=== PATIENT | male | born 1975 | race Caucasian/White ===

== ENCOUNTER → 2018-11-01 08:45 | Outpatient (CLI) | payer BC, SELFPAY ==
[2018-11-01 10:40] LABS: ALB/GLOB Ratio 1.1 RATIO (0.9-2.4); AST(SGOT) 16 U/L (15-37); Alanine Aminotransfer ALT/SGPT 21 U/L (16-61); Albumin, Serum 4.1 g/dL (3.2-5.0); Alkaline Phosphatase 80 U/L (45-117); Anion Gap 5 (5-15); BUN 16 mg/dL (7-18); BUN/Creat Ratio 15.7 RATIO (10-20); Calcium,Total 9.6 mg/dL (8.5-10.1); Chloride 107 mmol/L (98-107); Cholesterol 170 mg/dL (200); Creatinine, Serum 1.02 mg/dL (0.70-1.30); EST Glomerular Filtration Rate 85 mL/min (>60); Est Glom Filt Rate - Afr Amer 103 mL/min (>60); Globulin 3.6 g/dL (2.2-4.2); Glucose 99 mg/dL (74-106); High Density Lipoprotein 42 mg/dL; Potassium 4.4 mmol/L (3.5-5.1); Protein, Total 7.7 g/dL (6.4-8.2); Sodium Level 139 mmol/L (136-145); Triglycerides 84 mg/dL; Very Low Density Lipoprotein 17 mg/dL (5-40)
== END ==
PROVIDERS: Family Provider Family Medicine; PCP Family Medicine; Referring Provider Family Medicine; Visit Provider Nurse Practitioner Family
DX: Z00.00 Encounter for general adult medical examination without abnormal findings (principal)
CPT/HCPCS: 36415; 80053; 80061

== ENCOUNTER 2022-01-19 19:17 | Emergency (ER) | payer BC, SELFPAY ==
[2022-01-19 19:18] VITALS: BP 148/85; PULSE 104; RESP 13; TEMP 37; O2SAT 100; BMI 24.6
[2022-01-19 19:21] VITALS: BMI 24.6
[2022-01-19 19:46] LABS: Bedside Glucose 87 mg/dL (74-106)
--- NOTE | 2022-01-19 19:48 | CT_ITS ---
INDICATION: vision changes EXAMINATION: CT BRAIN - CT Head or Brain W/O Contrast Injection TECHNIQUE: Multiple axial images were obtained of the head without intravenous contrast. A radiation dose optimization technique was used for this scan. IV Contrast dosage and agent: None. COMPARISON: None. FINDINGS: BRAIN PARENCHYMA: No intra- or extra-axial hemorrhage. No intracranial mass or mass effect. Coughlin/white matter differentiation is maintained and there is no blurring of the basal ganglia. There is no hyperdense vessel. Posterior fossa structures are unremarkable. CSF SPACES: Appropriate for age. No hydrocephalus. Basal cisterns are patent. CALVARIUM, SKULL BASE, PARANASAL SINUSES AND MASTOID AIR CELLS: Air-fluid levels right and left maxillary sinuses opacifying up to % of the maxillary sinuses. Left frontal sinus is almost completely opacified. Minimal mucosal thickening ethmoid air cells. Sphenoid sinuses are clear. Mastoid air cells and middle ears are clear. Intact calvarium and skull base. ORBITS: Both globes, extraocular muscles, optic nerves and retrobulbar fat appear unremarkable. ASPECTS Score for Acute Strokes: 10 CT/Brain/Head without Contrast IMPRESSION: No intracranial pathology. Paranasal sinus disease as above. Electronically Signed: Shawn Chin DO at 20:23 EST ,
[2022-01-19] MEDS: 0.9% Normal Saline 1,000 ML 1000 ML IV (20:09)
[2022-01-19 20:13] LABS: Absolute Lymphocyte Count 4.26 X10^3/uL (0.83-4.51); Absolute Neutrophil Count 5.7 X10^3/uL (2.0-7.7); Basophil# 0.07 X10^3/uL; Basophil% 0.6 % (0-1); Eosinophil# 0.36 X10^3/uL; Eosinophils% 3.2 % (0-5); Hematocrit 43.1 % (40-54); Hemoglobin 15.2 g/dL (13.0-16.5); Lymphocyte # 4.26 X10^3/ul (0.83-4.51); Lymphocyte % 37.3 % (19-41); Mean Corp Hgb Conc 35.3 g/dL (32-36); Mean Corpuscular Hgb 32.2 pg (27.0-32.0); Mean Corpuscular Volume 91.3 fL (80-94); Mean Platelet Vol. 10.7 fl (6.2-12.0); Monocyte# 0.98 X10^3/uL; Monocyte% 8.6 % (0-10); NRBC Flagged by Analyzer 0 % (0-5); Neutrophil # 5.73 X10^3/uL (2.7-7.7); Neutrophil % 50.1 % (47-70); Platelet Count 211 K/mm3 (150-450); RBC Distribution Width CV 13.2 % (11.6-14.6); RBC Distribution Width SD 44.6 fl (35.1-43.9); Red Blood Count 4.72 M/mm3 (4.6-6.2); White Blood Count 11.4 K/mm3 (4.4-11.0)
[2022-01-19 20:13] LABS: Bacteria 0 SEEN /hpf (None Seen); Mucous, Urine 0 SEEN /hpf (<or=2+); Red Blood Cells-Urine 0 SEEN /hpf (0-5); Squamous Epithelial Cells - UA 0 SEEN /hpf (0-5); White Blood Cells 0 SEEN /hpf (0-5)
[2022-01-19 20:20] LABS: Color, Urine Yellow (Yellow); Glucose, Dipstick Normal (Normal); Ketone-Dipstick Negative (Negative); Leukocyte Esterase-Dipstick Negative /ul (Negative); Nitrite-Dipstick Negative (Negative); Occult Blood-Urine Negative /ul (Negative); Protein-Dipstick Negative (Negative); Urine Bilirubin Dipstick Negative (Negative); Urine Clarity Clear (Clear); Urine Urobilinogen Normal (Normal); Urine pH 6.5 (5.0 - 8.0)
[2022-01-19 20:23] LABS: Partial Thromboplast Time 29.8 Seconds (24.1-36.2)
[2022-01-19 20:31] LABS: ALB/GLOB Ratio 1.1 RATIO (0.9-2.4); AST(SGOT) 25 U/L (15-37); Alanine Aminotransfer ALT/SGPT 31 U/L (16-61); Albumin, Serum 4.3 g/dL (3.2-5.0); Alkaline Phosphatase 90 U/L (45-117); Anion Gap 8 (5-15); BUN 21 mg/dL (7-18); BUN/Creat Ratio 22.4 RATIO (10-20); Calcium,Total 9.3 mg/dL (8.5-10.1); Chloride 102 mmol/L (98-107); Creatinine, Serum 0.94 mg/dL (0.70-1.30); EST Glomerular Filtration Rate 92 mL/min (>60); Est Glom Filt Rate - Afr Amer 112 mL/min (>60); Estimated Creatinine Clearance 110.97 ml/min; Globulin 3.8 g/dL (2.2-4.2); Glucose 94 mg/dL (74-106); Potassium 3.7 mmol/L (3.5-5.1); Protein, Total 8.1 g/dL (6.4-8.2); Sodium Level 138 mmol/L (136-145)
[2022-01-19 20:41] VITALS: BP 152/88; PULSE 113; RESP 26; O2SAT 99
--- NOTE | 2022-01-19 20:42 | EX.ED.DYSGE1 ---
HPI History of Present Illness Chief Complaint: Neuro S/Sx Informant: patient Narrative Narrative: Patient is a 46-year-old male with history of anxiety presenting for concern of an episode of difficulty putting words together as well as transient vision change in his left eye. Patient states that he has been tentatively diagnosed with ocular migraines by his eye doctor 6 months to a year ago. States he gets 1-2 episodes a year. He most recently saw his production engine repairer, Dr. Post, who told him if he had increased frequency of this he might need further evaluation. Patient states when these episodes happen his vision feels fuzzy and pulsatile and sometimes into his left eye and sometimes it is right. He has since had 2 episodes in the last week which is an increased frequency. His is not usually around when he has not sought today and recommend he come to the ER because she has a history of stroke. Patient states that when this happens it was a his left eye that felt fuzzy and he had a hard time completing his sentences/putting his words altogether. No report of any slurred speech. Patient notes he does get the speech changes when he is very anxious as well. He has been having worsening headaches as well as left shoulder and back pain. He used to be on Celexa 40 mg but is been off it for couple of years. Denies any associated numbness or tingling. No other complaints at this time. [facility] Medical History GERD (gastroesophageal reflux disease) Home Medications amoxicillin 875 mg-potassium clavulanate 125 mg tablet 1 tab PO BID #20 tabs 01/19/22 [Rx Last Taken Unknown] cetirizine 10 mg capsule (Zyrtec) 10 mg PO DAILY #14 caps 01/19/22 [Rx Last Taken Unknown] omeprazole 20 mg capsule,delayed release 20 mg PO DAILY 01/19/22 [History Last Taken Unknown] Allergy/AdvReac Type Severity Reaction Status Date / Time No Known Allergies Allergy Verified 01/19/22 19:24 Surgical History History of knee surgery Social History Smoking Status: Current every day smoker tobacco type: cigarettes ROS ROS ED Constitutional Constitutional ED: Denies chills or fever(s) Eyes Eyes: Reports blurry vision; Denies change in vision or diplopia ENT ENT ED: Denies rhinorrhea or sore throat Cardiovascular Cardiovascular: Denies chest pain or palpitations Respiratory/Chest Respiratory/Chest: Denies cough or dyspnea Gastrointestinal Gastrointestinal: Denies abdominal pain Genitourinary Genitourinary ED: Denies dysuria or hematuria Musculoskeletal Musculoskeletal: Reports back pain and neck pain; Denies arthralgias or myalgias Integumentary Denies Abrasions or rash Neurologic Neurologic: Reports headache(s); Denies paresthesias or weakness Psychiatric Psychiatric: Reports anxiety; Denies depression Hematologic/Lymphatic Hematologic/Lymphatic: Denies easy bleeding or easy bruising EXAM Physical Exam Const Vital Signs: 01/19/22 19:18 01/19/22 20:41 01/19/22 21:00 Temperature 98.6 F Temperature Source Temporal Pulse Rate 104 H 113 H 122 H Respiratory Rate 13 26 H 13 Blood Pressure 148/85 H 152/88 H Blood Pressure Mean 106 109 Pulse Ox 100 99 100 Oxygen Delivery Method Room Air Room Air Room Air 01/19/22 22:00 Temperature Temperature Source Pulse Rate 103 H Respiratory Rate 13 Blood Pressure 139/82 H Blood Pressure Mean 101 Pulse Ox 100 Oxygen Delivery Method Room Air Positive well nourished and well developed General Appearance ED: well developed and NAD HEENT Reports moist mucous membranes Eyes PERRL and EOMs intact bilaterally Eyes Narrative: Normal conjunctiva Neck supple and no JVD Chest Wall inspection of chest normal and palpation of chest normal Resp normal respiratory effort and clear to auscultation bilaterally Cardio regular rate, regular rhythm and no murmurs GI normal to inspection, nondistended, normoactive bowel sounds and non-tender Back/Spine Back/Spine Narrative: Mild left trapezius tenderness Cervical Spine: Negative for cervical spine tenderness Thoracic Spine / Upper Back: Negative for thoracic spinal tenderness Lumbar Spine / Lower Back: Negative for lumbar spinal tenderness Extremity normal to inspection General Extremety ED: Negative for edema or tenderness General Extremity: Negative for edema Neuro oriented x3, CN's II-XII intact bilaterally and no sensory deficits noted Neuro Narrative: NIH equals 0, no visual field cut appreciated Sensorium / Orientation: alert Motor Exam: strength 5/5 throughout; Negative for general weakness Psych mental status grossly normal Mood & Affect: anxious Skin no rashes or lesions noted and no wounds MDM MDM MDM Narrative Medical decision making narrative: Patient is evaluated for intermittent episodes of vision change and an episode where he could not get his words altogether. His NIH is currently 0. These symptoms have been ongoing for a year off and on and is previously been told he likely has ocular migraines. This is compounded by having increasing anxiety and he states he gets the speech changes when he is very anxious. Given that he currently has a normal neurologic exam a stroke alert is not called. Work-up including a CT of the brain as well as lab work is obtained. Patient has a mild leukocytosis of 11.[address] of the brain shows paranasal sinus disease but no other acute process. This might explain patient's recent increase in headaches. While in the ER patient is tachycardic but attributes this to his anxiety. CTA is ordered which shows no acute abnormalities. Given his negative work-up with these ongoing symptoms for over a year I feel that he can be discharged home with outpatient follow-up. He will be started on Augmentin as well as Zyrtec for his sinus disease. He is agreeable this plan of care. He will follow-up with his primary care doctor and he is also given referral for neurology. Patient is encouraged to speak with his primary care doctor about his anxiety and whether or not he would like to go back on Celexa. Lab Data Attestation: I reviewed the patient's lab results. Labs: Laboratory Results - last 24 hr 01/19/22 01/19/22 01/19/22 19:20 19:20 19:20 WBC 11.4 H RBC 4.72 Hgb 15.2 Hct 43.1 MCV 91.3 MCH 32.2 H MCHC 35.3 RDW Std Deviation 44.6 H RDW Coeff of Nissa 13.2 Plt Count 211 MPV 10.7 Immature Gran % (Auto) 0.200 Neut % (Auto) 50.1 Lymph % (Auto) 37.3 [place] % (Auto) 8.6 Eos % (Auto) 3.2 Baso % (Auto) 0.6 Absolute Neuts (auto) 5.7 Absolute Lymphs (auto) 4.26 Nucleated RBC % 0 PT 13.0 INR 1.0 APTT 29.8 Sodium 138 Potassium 3.7 Chloride 102 Carbon Dioxide 28.0 Anion Gap 8 BUN 21 H Creatinine 0.94 Estim Creat Clear Calc 110.97 Est GFR (MDRD) Af Amer 112 Est GFR (MDRD) Non-Af 92 BUN/Creatinine Ratio 22.4 H Glucose 94 Calcium 9.3 Total Bilirubin 0.20 AST 25 ALT 31 Alkaline Phosphatase 90 Total Protein 8.1 Albumin 4.3 Globulin 3.8 Albumin/Globulin Ratio 1.1 Urine Color Urine Clarity Urine pH Ur Specific Arthur Urine Protein Urine Glucose (UA) Urine Ketones Urine Occult Blood Urine Nitrite Urine Bilirubin Urine Urobilinogen Ur Leukocyte Esterase Urine RBC Urine WBC Ur Squamous Epith Cells Urine Bacteria Urine Mucus POC Glucose 01/19/22 01/19/22 19:26 20:10 WBC RBC Hgb Hct MCV MCH MCHC RDW Std Deviation RDW Coeff of Nissa Plt Count MPV Immature Gran % (Auto) Neut % (Auto) Lymph % (Auto) [place] % (Auto) Eos % (Auto) Baso % (Auto) Absolute Neuts (auto) Absolute Lymphs (auto) Nucleated RBC % PT INR APTT Sodium Potassium Chloride Carbon Dioxide Anion Gap BUN Creatinine Estim Creat Clear Calc Est GFR (MDRD) Af Amer Est GFR (MDRD) Non-Af BUN/Creatinine Ratio Glucose Calcium Total Bilirubin AST ALT Alkaline Phosphatase Total Protein Albumin Globulin Albumin/Globulin Ratio Urine Color Yellow Urine Clarity Clear Urine pH 6.5 Ur Specific Arthur 1.010 Urine Protein Negative Urine Glucose (UA) Normal Urine Ketones Negative Urine Occult Blood Negative Urine Nitrite Negative Urine Bilirubin Negative Urine Urobilinogen Normal Ur Leukocyte Esterase Negative Urine RBC 0 SEEN Urine WBC 0 SEEN Ur Squamous Epith Cells 0 SEEN Urine Bacteria 0 SEEN Urine Mucus 0 SEEN POC Glucose 87 Radiography Diagnostic Testing: Clinical Impression(s) from Imaging Studies Brain CT 01/19/22 19:48 IMPRESSION: No intracranial pathology. Paranasal sinus disease as above. Electronically Signed: hSawn Chin DO at 20:23 EST , Head/Neck CTA 01/19/22 21:46 IMPRESSION: No large vessel occlusion. Minimal intimal calcifications right left carotid bulbs without luminal narrowing. Paranasal sinus disease. Emphysematous changes as well as lung apices. Electronically Signed: Shawn Chin DO at 22:45 EST , ADDENDUM: 01/19/22 0394 IMPRESSION: No large vessel occlusion. Minimal intimal calcifications right left carotid bulbs without luminal narrowing. Paranasal sinus disease. Emphysematous changes as well as lung apices. N.B. : The above Results were Read Back by Shawn Chin DO to Dr. Omar MD, and understanding confirmed on 01/19/2022 22:47:30 (ET). Electronically Signed: Shawn Chin DO at 22:45 EST , Rhythm Strip Rhythm Strip: Sinus Rhythm Rate: 93 Ectopy: None EKG Initial EKG: Attestation: I personally reviewed and interpreted this EKG as follows: Interpretation: Sinus Rhythm Comments: Normal sinus rhythm rate of 93 bpm Normal axis Normal intervals Normal ST segments Discharge Plan Triage Chief Complaint: Neuro S/Sx ED Provider: Bri Nelson Dx/Rx/DC Orders Clinical Impression: Changes in vision, Anxiety, Sinusitis Instructions: ED Headache Unspecified, ED Sinusitis (Antibiotic Treatment) Prescriptions: New amoxicillin-pot clavulanate 875-125 mg tablet 1 tab PO BID Qty: 20 0RF Zyrtec 10 mg capsule 10 mg PO DAILY Qty: 14 0RF No Action omeprazole 20 mg capsule,delayed release(DR/EC) 20 mg PO DAILY Primary Care Provider: Kem Santos Referrals: Kem Santos MD [Primary Care Provider] - James Flores MD [Non-Staff -Ordering Privileges] - As soon as possible Activity Restrictions/Additional Instructions: Please follow-up with your primary care doctor as well as neurology for further evaluation of the symptoms. At this time I feel you are safe to go home. No signs of stroke at this time. Disposition Disposition: Home, Self Care
[2022-01-19 21:00] VITALS: PULSE 122; RESP 13; O2SAT 100
--- NOTE | 2022-01-19 21:46 | CT_ITS ---
We are attempting to reach an attending provider to discuss findings. An addendum with communication details will be sent when the communication is complete. INDICATION: vision changes EXAMINATION: CT BRAIN WITH CONTRAST TECHNIQUE: Routine carotid CT angiogram protocol was performed without and with IV contrast. In addition, images were obtained of the [place] of [place]. NASCET criteria using the distal ICAs for comparison were used for evaluation of stenoses. 3D reconstructions were reviewed. A radiation dose optimization technique was used for this scan. IV Contrast dosage and agent: 100 mL of [id number]. COMPARISON: Unenhanced helical CT is head and brain from earlier the same evening. FINDINGS: --CTA NECK: AORTIC ARCH AND BRANCHES: Normal anatomy, patent. RIGHT CCA: No occlusion, significant stenosis or dissection. RIGHT ICA: No occlusion, significant stenosis or dissection. Minimal intimal calcifications at the level of the carotid bulb without narrowing. LEFT CCA: No occlusion, significant stenosis or dissection. LEFT ICA: No occlusion, significant stenosis or dissection. Minimal intimal calcifications at the level of the carotid bulb without narrowing. RIGHT VERTEBRAL ARTERY: No occlusion, significant stenosis or dissection. LEFT VERTEBRAL ARTERY: No occlusion, significant stenosis or dissection. NECK SOFT TISSUES: No lymphadenopathy. No soft tissue mass lesion. Note of a 10 mm smooth margined hypodensity periphery of the right thyroid lobe. Mild degenerative disc and endplate changes most notably at C4-5 through C6-7 levels. Centrilobular and paraseptal emphysematous changes seen in the visualized upper lungs. --CTA HEAD: --Anterior circulation: ICAs: No significant stenosis at the intracranial/visualized segments. ACAs: No significant stenosis at the visualized segments. Asymmetrically smaller left A2 segment compared to the right; variant anatomy. ACOM: Present. MCAs: No significant stenosis at the visualized segments. --Posterior circulation: PCOMs: Absent bilaterally. steamboat inspector: No significant stenosis at the visualized segments. BASILAR ARTERY: No significant stenosis. VERTEBRAL ARTERIES: No significant stenosis at the intradural/visualized segments. No evidence of intracranial aneurysm or vascular malformation. Air-fluid levels noted in the maxillary sinuses. CT/STROKE CTA Head AND Neck W/Con IMPRESSION: No large vessel occlusion. Minimal intimal calcifications right left carotid bulbs without luminal narrowing. Paranasal sinus disease. Emphysematous changes as well as lung apices. Electronically Signed: Shawn Chin DO at 22:45 EST ,
[2022-01-19 22:00] VITALS: BP 139/82; PULSE 103; RESP 13; O2SAT 100
[2022-01-19 23:43] VITALS: BP 138/86; PULSE 102; RESP 22; TEMP 37; O2SAT 98
[2022-01-19] MEDS: Amox/Clavulanate 875 MG Tablet PO (23:46)
== END 2022-01-19 23:50 | disposition home or self-care (01) ==
PROVIDERS: Emergency Provider Emergency Medicine; PCP Family Medicine; Visit Provider Emergency Medicine
DX: J32.9 Chronic sinusitis, unspecified (principal); F41.9 Anxiety disorder, unspecified; M25.512 Pain in left shoulder; M54.9 Dorsalgia, unspecified; F17.210 Nicotine dependence, cigarettes, uncomplicated; H53.9 Unspecified visual disturbance; Z86.73 Personal history of transient ischemic attack (TIA), and cerebral infarction without residual deficits; R51.9 Headache, unspecified; K21.9 Gastro-esophageal reflux disease without esophagitis; Z79.899 Other long term (current) drug therapy
CPT/HCPCS: 70450; 70496; 70498; 80053; 81001; 82962; 85025; 85610; 85730; 93005; 96360; 96361; 99284; J7030; Q9967; A4216

== ENCOUNTER 2024-11-28 17:20 | Emergency (ER) | payer BC, SELFPAY ==
[2024-11-28 17:21] VITALS: BP 139/93; PULSE 78; RESP 18; TEMP 36.8; O2SAT 100; BMI 23.8
[2024-11-28] MEDS: Rabies Immune Globulin/PF 300 UNIT/ML, 5 ML VIAL 1500 UNIT IM (19:36)
[2024-11-28 20:13] VITALS: BP 127/80; PULSE 79; RESP 16; TEMP 36.7; O2SAT 100
--- NOTE | 2024-11-29 00:34 | EX.ED.GENINJ ---
HPI History of Present Illness Chief Complaint: Bite Narrative Narrative: Patient is a 48-year-old male presenting to the emergency department after being bit by a squirrel. Patient states that he was trying to kill the squirrel and picked it up by its tail and it turned around and bit him in the right index finger. States he has never had any rabies shots before. Denies any other injuries. Up-to-date on tetanus. [facility] Medical History GERD (gastroesophageal reflux disease) Home Medications ?Medication ?Instructions ?Recorded ?Last Taken ?Type cetirizine 10 mg capsule (Zyrtec) 10 mg PO DAILY #14 caps 01/19/22 Unknown Rx omeprazole 20 mg capsule,delayed 20 mg PO DAILY 01/19/22 Unknown History release sertraline 50 mg tablet (Zoloft) 50 mg PO DAILY 03/09/23 Unknown History Allergy/AdvReac Type Severity Reaction Status Date / Time No Known Allergies Allergy Verified 11/28/24 17:21 Family History Mother Diabetes Surgical History History of knee surgery Social History Smoking Status: Current every day smoker tobacco type: cigarettes substance use type: does not use ROS ROS ED ROS Narrative See HPI EXAM Physical Exam Narrative Exam Narrative: Vital signs: Reviewed General: Alert and orientedx3. No acute distress HEENT: Head is normocephalic and atraumatic, sinuses nontender, pupils equal round and reactive. Nares are patent. Oropharynx and throat exams normal. Neck: Supple without lymphadenopathy nontender Cardiovascular: Regular rate and rhythm, no murmurs. No rubs or gallops. Normal S1 and S2 Respiratory: Clear to auscultation bilaterally. No wheezes, rales, rhonchi Abdominal: Soft and nontender. Normal bowel sounds. No guarding or rebound. Nonsurgical abdomen Extremities: 2 small superficial puncture wounds to the distal right index finger on the dorsal side. There is no gaping wound. The wounds are superficial, there is no subcutaneous involvement. No tenderness. No bruising. Normal range of motion. Normal sensation. Skin: No rash or redness. Neurological: Cranial nerves II through XII are grossly intact. Normal strength and sensation. Normal cerebellar function The rest of the physical exam is unremarkable Const Vital Signs: 11/28/24 17:21 11/28/24 20:13 Temperature 98.2 F 98.0 F Temperature Source Oral Pulse Rate 78 79 Respiratory Rate 18 16 Blood Pressure 139/93 H 127/80 H Blood Pressure Mean 108 95 Pulse Ox 100 100 Oxygen Delivery Method Room Air MDM MDM MDM Narrative Medical decision making narrative: Patient is a 48-year-old male presenting to the emergency department after being bit by a squirrel. Patient was seen and examined. Vitals are stable. Patient resting bed comfortably no acute distress. Tetanus up-to-date. Discussed with the patient that there is a low likelihood that squirrels carry rabies however did offer the rabies vaccine and immunoglobulin. Patient is agreeable. These were given here. Patient was instructed to come back on days 3, 7 and 14 for additional vaccines. The wound was copiously irrigated. Patient was given wound care instructions. The wound is very superficial, I do not think it is necessary to obtain x-ray imaging given I have no concern for any fractures or foreign bodies. Patient discharged from the Emergency Department. I do not feel that the patient's evaluation reveals any acute reason for admission at this time. I instructed them to either follow-up with their primary care physician or promptly return to the Emergency Department for reevaluation should symptoms worsen or new symptoms develop. I explained what symptoms would indicate the need to return to the emergency department. Shared decision making was used. The patient voiced understanding of the treatment plan and is agreeable with it. Clinical impression Animal bite History & Record Review Discussion w/independent historian: Patient Discharge Plan Triage Chief Complaint: Bite ED Provider: Cynthia Macdonald Dx/Rx/DC Orders Clinical Impression: Animal bite Instructions: Understanding Rabies, ED Animal Bite (General) Prescriptions: No Action sertraline [Zoloft] 50 mg tablet 50 mg PO DAILY omeprazole 20 mg capsule,delayed release(DR/EC) 20 mg PO DAILY Zyrtec 10 mg capsule 10 mg PO DAILY Qty: 14 0RF Primary Care Provider: Gaurav Santos Referrals: Gaurav Santos MD [Primary Care Provider, Family Practice] - As soon as possible Activity Restrictions/Additional Instructions: You need to return here in 3 days, 7 days and 14 days for repeat rabies vaccinations. Keep the wound clean and dry. Your evaluation in the Emergency Department did not reveal any acute reason for admission. However, I want to emphasize that you may be early in the course of a disease process or illness even if it is not present. For this reason you should follow-up within 24 hours for reevaluation with either your primary care physician or if necessary back here in the Emergency Department. You should return to the Emergency Department immediately if your symptoms worsen or new symptoms develop. Print Language: Cypriot Disposition Disposition: Home, Self Care Discharge Date/Time: 11/28/24 20:16
== END 2024-11-28 20:16 | disposition home or self-care (01) ==
PROVIDERS: Emergency Provider Student in an Organized Health Care Education/Training Program; PCP Family Medicine; Visit Provider Student in an Organized Health Care Education/Training Program
DX: S61.230A Puncture wound without foreign body of right index finger without damage to nail, initial encounter (principal); W53.21XA Bitten by squirrel, initial encounter; Z23 Encounter for immunization; K21.9 Gastro-esophageal reflux disease without esophagitis; F17.210 Nicotine dependence, cigarettes, uncomplicated
CPT/HCPCS: 90675; 96372; 99282; 90375

== ENCOUNTER 2024-12-01 08:31 | Outpatient (CLI) | payer BC, SELFPAY ==
[2024-12-01 08:31] VITALS: BP 122/84; PULSE 76; RESP 14; O2SAT 99
[2024-12-01 09:16] VITALS: BP 122/84; PULSE 76; RESP 14; TEMP 36.6; O2SAT 99
== END 2024-12-01 09:17 | disposition home or self-care (01) ==
PROVIDERS: PCP Family Medicine; Visit Provider Student in an Organized Health Care Education/Training Program
DX: Z23 Encounter for immunization (principal); S61.230A Puncture wound without foreign body of right index finger without damage to nail, initial encounter; W53.21XA Bitten by squirrel, initial encounter
CPT/HCPCS: 90675; 96372

== ENCOUNTER 2024-12-05 08:53 | Outpatient (CLI) | payer BC, SELFPAY ==
[2024-12-05 08:55] VITALS: BP 134/78; PULSE 88; RESP 14; O2SAT 98; BMI 23.7
[2024-12-05 09:16] VITALS: BP 136/65; PULSE 64; RESP 18; TEMP 37.1; O2SAT 99
== END 2024-12-05 09:18 | disposition home or self-care (01) ==
LOC: ED 09:25
PROVIDERS: PCP Family Medicine; Visit Provider Student in an Organized Health Care Education/Training Program
DX: Z23 Encounter for immunization (principal); S61.230D Puncture wound without foreign body of right index finger without damage to nail, subsequent encounter; W53.21XD Bitten by squirrel, subsequent encounter
CPT/HCPCS: 90675; 96372

== ENCOUNTER 2024-12-12 15:30 | Outpatient (CLI) | payer BC, SELFPAY ==
[2024-12-12 15:30] VITALS: BP 116/83; PULSE 87; RESP 16; TEMP 36.8; O2SAT 98; BMI 24.5
[2024-12-12 15:55] VITALS: BP 114/80; PULSE 87; RESP 16; TEMP 36.8; O2SAT 98
== END 2024-12-12 15:56 | disposition home or self-care (01) ==
LOC: ED 16:02
PROVIDERS: PCP Family Medicine; Visit Provider Student in an Organized Health Care Education/Training Program
DX: Z23 Encounter for immunization (principal); S61.230D Puncture wound without foreign body of right index finger without damage to nail, subsequent encounter; W53.21XD Bitten by squirrel, subsequent encounter
CPT/HCPCS: 90675; 96372